=== PATIENT | female | born 1965 | race Caucasian/White ===

== ENCOUNTER 2017-05-29 15:05 | Emergency (ER) | payer MEDICAID ==
[2017-05-29] MEDS ORDERED: Proparacaine 0.5% Ophth Soln 15 ML Bottle EYELF ONE (15:30)
[2017-05-29 15:31] VITALS: BP 122/84
--- NOTE | 2017-05-29 15:46 | EDM.PDOC ---
ED HPI GENERAL MEDICAL PROBLEM - General Chief Complaint: General Stated Complaint: LEFT EYE SWOLLEN Time Seen by Provider: 05/29/17 15:27 Source of Information: Reports: Patient History Limitations: Reports: No Limitations - History of Present Illness INITIAL COMMENTS - FREE TEXT/NARRATIVE: History of present illness: [52-year-old female presents with complaints of pressure in her left eye and feeling like something is pulling and scraping on it and that it feels like it swollen on the inside.] Review of systems: As per history of present illness and below otherwise all systems reviewed and negative. Past medical history: As per history of present illness and as reviewed below otherwise noncontributory. Surgical history: As per history of present illness and as reviewed below otherwise noncontributory. Social history: No reported history of drug or alcohol abuse. Family history: As per history of present illness and as reviewed below otherwise noncontributory. Physical exam: HEENT: Atraumatic, normocephalic, pupils reactive, negative for conjunctival pallor or scleral icterus, mucous membranes moist, throat clear, neck supple, nontender, trachea midline. Lungs: Clear to auscultation, breath sounds equal bilaterally, chest nontender. Heart: S1S2, regular, negative for clicks, rubs, or JVD. Abdomen: Soft, nondistended, nontender. Negative for masses or hepatosplenomegaly. Negative for costovertebral tenderness. Pelvis: Stable nontender. Genitourinary: Deferred. Rectal: Deferred. Extremities: Atraumatic, negative for cords or calf pain. Neurovascular unremarkable. Neuro: Awake, alert, oriented. Cranial nerves II through XII unremarkable. Cerebellum unremarkable. Motor and sensory unremarkable throughout. Exam nonfocal. Patient's Global assessment is benign save is and is in the subjective complaint Floor seen staining performed with a Wood's lamp with no visual appreciation of laceration or abrasion. Intraocular pressure obtained of 44 to the left eye that is the eye of concern visual acuity performed with left eye being 20/70 right being 20/40 with a substantial deficit in the left over the right. Spoke with Dr. Eastman at local ophthalmology and he indicated he was willing to see and evaluate patient for glaucoma or iritis or any other incidental concerns. We'll direct patient to that location Diagnostics: [Floor seen staining, Jasper-Pen] Therapeutics: [] Impression: [eye pain, IOP] Plan: [Refer to ophthalmology] Definitive disposition and diagnosis as appropriate pending reevaluation and review of above. left face Pain Score (Numeric/FACES): 2 - Related Data Allergies Allergy/AdvReac Type Severity Reaction Status Date / Time erythromycin base Allergy Vomiting Verified 05/29/17 15:28 Penicillins Allergy Vomiting Verified 05/29/17 15:28 Home Meds: Home Meds . [No Known Home Meds] 05/29/17 [History] ED ROS GENERAL - Review of Systems Review Of Systems: See Below (History of present illness) ED EXAM, GENERAL - Physical Exam Exam: See Below (History of present illness) Course - Vital Signs Last Recorded V/S: Last Vital Signs Temp 36.8 C 05/29/17 15:28 Pulse 81 05/29/17 15:28 Resp 16 05/29/17 15:28 BP 122/84 05/29/17 15:28 Pulse Ox 95 05/29/17 15:28 - Orders/Labs/Meds Meds: Medications Discontinued Medications Generic Name Dose Route Start Last Admin Trade Name Freq PRN Reason Stop Dose Admin Proparacaine HCl 1 ml 05/29/17 15:30 Proparacaine 0.5% Ophth Soln EYELF 05/29/17 15:31 ONETIME ONE Departure - Departure Time of Disposition: 17:01 Disposition: DC/Tfer to Other 70 Condition: Good Clinical Impression: Eye pain - Discharge Information Additional Instructions: The following information is given to patients seen in the emergency department who are being discharged to home. This information is to outline your options for follow-up care. We provide all patients seen in our emergency department with a follow-up referral. The need for follow-up, as well as the timing and circumstances, are variable depending upon the specifics of your emergency department visit. If you don't have a primary care physician on staff, we will provide you with a referral. We always advise you to contact your personal physician following an emergency department visit to inform them of the circumstance of the visit and for follow-up with them and/or the need for any referrals to a consulting specialist. The emergency department will also refer you to a specialist when appropriate. This referral assures that you have the opportunity for follow-up care with a specialist. All of these measure are taken in an effort to provide you with optimal care, which includes your follow-up. Under all circumstances we always encourage you to contact your private physician who remains a resource for coordinating your care. When calling for follow-up care, please make the office aware that this follow-up is from your recent emergency room visit. If for any reason you are refused follow-up, please contact the [facility] Emergency Department at and asked to speak to the emergency department charge nurse. Follow-up with ophthalmology as directed Return to ED as needed as discussed
== END 2017-05-29 17:18 | disposition home or self-care (01) ==
LOC: MW.ED 15:05
DX: H57.12 Ocular pain, left eye (principal); Z88.0 Allergy status to penicillin; Z88.1 Allergy status to other antibiotic agents
CPT/HCPCS: 99282; 99283